=== PATIENT | female | born 1970 | race African-American/Black ===

== ENCOUNTER 2018-07-08 09:30 | Emergency (ER) | payer MEDICAID ==
[~2018-07-08] VITALS: Ht 170.2 cm; Wt 137.0 kg
[2018-07-08] MEDS ORDERED: SODIUM CHLORIDE 0.9% 1,000 ML IV ONE (10:36)
[2018-07-08 10:55] LABS: BASOPHILS % 0.7 % (0.0-2.0); CLARITY URINE CLOUDY (CLEAR); COLOR URINE YELLOW (YELLOW); EOSINOPHILS % 1.4 % (0.0-5.0); HEMATOCRIT. 34.4 % (36.0-48.0); HEMOGLOBIN. 10.8 g/dL (12.0-16.0); KETONES URINE NEGATIVE (NEGATIVE); LEUKOCYTE ESTERASE URINE 1+ (NEGATIVE); LYMPHOCYTES % 37.9 % (20.0-50.0); MEAN CORPUSCULAR HEMOGLOBIN 22.3 pg (28.0-32.0); MEAN CORPUSCULAR VOLUME 71.3 fL (81.0-99.0); MEAN PLATELET VOLUME 8.9 fl (7.4-10.4); MONOCYTES % 8.8 % (2.0-8.0); NEUTROPHILS % 51.2 % (40.0-76.0); NITRITE URINE NEGATIVE (NEGATIVE); OCCULT BLOOD URINE NEGATIVE (NEGATIVE); PLATELET 276 x1000/uL (130-400); PROTEIN URINE NEGATIVE (NEGATIVE); RED BLOOD CELL COUNT 4.83 mill/uL (4.2-5.4); RED CELL DISTRIBUTION WIDTH 17.6 % (11.6-14.6); SPECIFIC GRAVITY URINE 1.024 (1.005-1.030); UROBILINOGEN URINE 0.2 E.U./dL (0.2-1.0)
[2018-07-08 11:01] LABS: CHLORIDE 106 mEq/L (98-107); PROTHROMBIN TIME 9.9 sec (9.6-11.0)
[2018-07-08 11:05] LABS: HCG SCREEN NEGATIVE
[2018-07-08] MEDS ORDERED: CEFTRIAXONE 1 G PREMIX 50 ML IV ONE (11:15)
[2018-07-08 12:29] VITALS: BP 160/76
== END 2018-07-08 13:00 | disposition home or self-care (01) ==
LOC: ER 09:30
DX: N39.0 Urinary tract infection, site not specified (principal); E86.0 Dehydration; D50.9 Iron deficiency anemia, unspecified; I10 Essential (primary) hypertension; F17.200 Nicotine dependence, unspecified, uncomplicated
CPT/HCPCS: 36415; 71045; 80053; 81003; 83605; 83690; 84484; 84703; 85025; 85610; 87804; 93005; 96361; 96365; 99284; J0696; J7030

== ENCOUNTER 2020-04-11 10:44 | Emergency (ER) | payer MEDICAID ==
[~2020-04-11] VITALS: Ht 167.6 cm; Wt 136.0 kg
[2020-04-11 14:08] LABS: BASOPHILS % 0.6 % (0.0-2.0); MEAN CORPUSCULAR HEMOGLOBIN 22.5 pg (28.0-32.0); MEAN CORPUSCULAR VOLUME 71.9 fL (81.0-99.0); MEAN PLATELET VOLUME 8.3 fl (7.4-10.4); NEUTROPHILS % 50.4 % (40.0-76.0); PLATELET 333 x1000/uL (130-400); RED BLOOD CELL COUNT 2.87 mill/uL (4.2-5.4)
[2020-04-11 14:10] LABS: HEMATOCRIT. 20.6 % (36.0-48.0); HEMOGLOBIN. 6.5 g/dL (12.0-16.0)
[2020-04-11 14:13] LABS: CHLORIDE 109 mEq/L (98-107)
[2020-04-11 14:24] LABS: B-HCG QUANTITATIVE < 1 mIU/mL (<3)
[2020-04-11] MEDS ORDERED: FERR324T4 MT (16:44)
[2020-04-11 20:00] VITALS: BP 122/58
== END 2020-04-11 20:15 | disposition home or self-care (01) ==
LOC: ER 10:44
DX: N93.9 Abnormal uterine and vaginal bleeding, unspecified (principal); D64.9 Anemia, unspecified; R06.02 Shortness of breath; I10 Essential (primary) hypertension; R42 Dizziness and giddiness
CPT/HCPCS: 36415; 71045; 76830; 76856; 80053; 84484; 84702; 85025; 86850; 86900; 86901; 86920; 93005; 99285; Z7610; P9016

== ENCOUNTER 2020-05-19 13:53 | Emergency (ER) | payer MEDICAID ==
[~2020-05-19] VITALS: Ht 172.7 cm; Wt 136.0 kg
[~2020-05-19 13:53] MED LIST: FERR324T4 MT
[2020-05-19 14:59] LABS: BASOPHILS % 0.9 % (0.0-2.0); EOSINOPHILS % 0.7 % (0.0-5.0); HEMATOCRIT. 21.4 % (36.0-48.0); LYMPHOCYTES % 39.5 % (20.0-50.0); MEAN CORPUSCULAR HEMOGLOBIN 20.6 pg (28.0-32.0); MEAN CORPUSCULAR VOLUME 66.5 fL (81.0-99.0); MEAN PLATELET VOLUME 7.8 fl (7.4-10.4); MONOCYTES % 7.5 % (2.0-8.0); NEUTROPHILS % 51.4 % (40.0-76.0); PLATELET 279 x1000/uL (130-400); RED BLOOD CELL COUNT 3.21 mill/uL (4.2-5.4); RED CELL DISTRIBUTION WIDTH 19.8 % (11.6-14.6)
[2020-05-19 15:10] LABS: HEMOGLOBIN. 6.6 g/dL (12.0-16.0)
[2020-05-19 15:11] LABS: CHLORIDE 112 mEq/L (98-107)
[2020-05-19 15:30] LABS: PLATELET ESTIMATE NORMAL
[2020-05-19] MEDS ORDERED: IBUPROFEN 400MG TABLET PO ONE (19:15)
[2020-05-19 20:00] VITALS: BP 138/65
== END 2020-05-19 21:48 | disposition home or self-care (01) ==
LOC: ER 14:10
DX: D62 Acute posthemorrhagic anemia (principal); N92.0 Excessive and frequent menstruation with regular cycle; I10 Essential (primary) hypertension
CPT/HCPCS: 36415; 80053; 84702; 85025; 86850; 86900; 86920; 93005; 99285; P9016